=== PATIENT | female | born 1945 | race Caucasian/White ===

== ENCOUNTER 2018-12-24 05:10 | Day surgery (SDC) | payer OTHER ==
[~2018-12-24 05:10] MED LIST: ALBU90OI INH; ATOR20 PO; Antivert25 MG PO; BENAML20/5 PO; BENTYL10 MG PO; BIOTIN1 MG; Clear-Atadine10 MG PO; Co Q-1010 MG; ERGO400; Excedrin Extra1 EACH; FLUT220OIA INH; Finacea50 GM TOP; GABA400 PO; MELA3; OMEP20ER PO; PROBIOTIC1 EAC1; TRAM50 PO; Zofran8 MG PO
== END 2018-12-24 23:15 | disposition home or self-care (01) ==
LOC: MOI US 05:10 → MOI MAM 07:30 → MOI US 07:30
DX: D24.2 Benign neoplasm of left breast (principal); N63.21 Unspecified lump in the left breast, upper outer quadrant
CPT/HCPCS: 19083; 77065; 88305

== ENCOUNTER → 2020-03-27 | Outpatient (CLI) | payer OTHER | LOC: PLD 07:32 → LAB SHORT 07:32 | DX: D48.5 Neoplasm of uncertain behavior of skin (principal) | CPT/HCPCS: 88305 ==

== ENCOUNTER → 2020-10-10 | Outpatient (CLI) | payer OTHER ==
[~2020-10-10] MED LIST changes: +BENA20 PO; -MELA3; +MELA3 PO; +METO25ER; +POTA8 PO; +TURMERIC500 M2 PO; +Vitamin B Comple1 EA PO
== END | disposition home or self-care (01) ==
LOC: LAB 11:28 → LAB SHORT 11:28
DX: L82.1 Other seborrheic keratosis (principal); L57.8 Other skin changes due to chronic exposure to nonionizing radiation
CPT/HCPCS: 88305

== ENCOUNTER 2020-11-13 07:31 | Day surgery (SDC) | payer OTHER ==
[~2020-11-13] VITALS: Ht 162.6 cm; Wt 83.3 kg
--- NOTE | 2020-11-13 09:44 | NUR ---
11/13/20 0944 Pura Garcia PT UPDATED REGARDING THE DELAY IN HER CASE DUE TO PREVIOUS CASES GOING LONG.
== END 2020-11-13 13:42 | disposition home or self-care (01) ==
LOC: ORSCSDS 07:31
PROVIDERS: Surgery
PROC: 0WUF0JZ Supplement Abdominal Wall with Synthetic Substitute, Open Approach (ICD-10-PCS; principal; 2020-11-13 09:00)
PROC: 0DBU0ZZ Excision of Omentum, Open Approach (ICD-10-PCS; principal; 2020-11-13 09:00)
DX: K43.6 Other and unspecified ventral hernia with obstruction, without gangrene (principal); I10 Essential (primary) hypertension; J45.909 Unspecified asthma, uncomplicated; E78.5 Hyperlipidemia, unspecified; Z79.899 Other long term (current) drug therapy; Z79.82 Long term (current) use of aspirin
CPT/HCPCS: 88307; A9270; C1781; J0690; J1100; J2405; J2704; J3010; J7120